=== PATIENT | female | born 2005 | race Caucasian/White ===

== ENCOUNTER 2025-07-11 23:19 | Emergency (ER) | payer MEDICAID, SELFPAY ==
--- NOTE | 2025-07-11 23:59 | XR_ITS ---
EXAMINATION: PA chest single view TECHNIQUE: Upright PA chest single view Date and time: July 12, 2025, 12:00 a.m., comparison September 22, 2022 INDICATIONS: Coughing 1 week with shortness of breath today FINDINGS: Normal heart size No lobar pneumonia or pulmonary edema. Osseous structures are intact IMPRESSION: No active disease
[2025-07-12 00:18] VITALS: BP 139/86; PULSE 89; RESP 18; TEMP 36.8; O2SAT 95
--- NOTE | 2025-07-12 00:29 | PD.EDSOB ---
ED SOB =RME/HPI General Chief Complaint: Shortness of Breath/Dyspnea Stated Complaint: SHORTNESS OF BREATH, COUGH Time Seen by Provider: 07/12/25 00:25 Arrival date/time: 07/11/25 23:19 19F with history of asthma presents to ED with days of cough and some SOB. Sibling has similar symptoms. Patient was given 5 day Rx of 20 mg prednisone Qday. Limitations: no limitations Related Data Home Medications ?Medication ?Instructions ?Recorded ?Confirmed montelukast 4 mg chewable tablet 4 mg PO HS 09/08/18 07/17/19 (Singulair) Previous Rx's ?Medication ?Instructions ?Recorded albuterol sulfate 90 mcg/actuation 2 puff inhalation Q4H PRN 09/29/17 aerosol inhaler shortness of breath or wheezing #18 grams benzonatate 100 mg capsule See Rx Instructions .Route 07/17/19 (Grover Cardona) .COMPLEX cough #30 caps cetirizine 5 mg-pseudoephedrine ER 1 tab PO Q12H #20 tabs 07/17/19 120 mg tablet,extended release,12hr (Zyrtec-D) ipratropium bromide 21 mcg (0.03 See Rx Instructions .Route 07/17/19 %) nasal spray .COMPLEX #30 mL ibuprofen 400 mg tablet 400 mg PO Q6H PRN fever or pain 07/31/19 #14 tabs acetaminophen 325 mg capsule 650 mg (2 x 325 mg) PO Q6H PRN 02/22/20 pain #30 caps ibuprofen 600 mg tablet 600 mg PO Q6H #30 tabs 02/22/20 prednisolone sodium phosphate 30 30 mg PO QDAY #4 tabs 07/17/20 mg disintegrating tablet ibuprofen 400 mg tablet 400 mg PO Q6H PRN pain #30 tabs 08/03/20 naproxen 500 mg tablet (Naprosyn) 500 mg PO BID PRN pain #30 tabs 12/25/20 sodium chloride 0.65 % nasal spray 2 spray intranasal QID PRN nasal 05/07/21 aerosol (Saline Nasal Mist) congestion #60 mL montelukast 10 mg tablet 10 mg PO QPM #30 tabs 09/22/22 (Singulair) naproxen 500 mg tablet 500 mg PO BID PRN pain #30 tabs 08/23/23 prednisone 20 mg tablet 20 mg PO BID 3 days #6 tabs 07/12/25 Allergies Allergy/AdvReac Type Severity Reaction Status Date / Time nut - unspecified Allergy Severe Swelling Verified 05/19/24 09:38 of Lip/Tongue/Throat walnut Allergy Severe Swelling Verified 05/19/24 09:38 of Lip/Tongue/Throat wheat Allergy Severe Swelling Verified 05/19/24 09:38 of Lip/Tongue/Throat Rat Epithelium Allergy Mild ITCHING Uncoded 05/19/24 09:38 Review of Systems Review of Systems Systems Reviewed: All systems reviewed, normal except as documented Cardiovascular Cardiovascular: Reports dyspnea Respiratory Respiratory: Reports as per HPI, Reports cough and Reports dyspnea Past Medical History Past Medical History CARDIAC: Negative Congestive Heart Failure RESPIRATORY: Positive Asthma; Negative Chronic Obstructive Pulmonary Disease (COPD) GASTROINTESTINAL: Positive Obesity GENITOURINARY: Negative Renal Disease ENDOCRINE: Negative Diabetes Mellitus Type 1 or Diabetes Mellitus Type 2 Social History SMOKING STATUS: Never smoker ED Exam General Limitations: Present no limitations General appearance: Present alert and in no apparent distress Head Head exam: Present atraumatic Neck Neck exam: Present normal inspection, full ROM and trachea midline Chest Chest inspection: Present normal inspection and symmetric chest wall rise Respiratory Respiratory exam: Present normal lung sounds bilaterally and prolonged expiratory phase (some) Neurological Exam Neurological exam: Present alert and oriented X3 Psychiatric Psychiatric exam: Present normal affect and normal mood Skin Skin exam: Present warm, dry, intact and normal color Course Quality Measures none Orders Category Date Time Status XR chest 1V portable Stat Exams 07/11/25 23:59 Taken Dexamethasone Inj [Decadron Inj] Med 07/12/25 00:25 Discontinued 10 mg PO X1 ONE predniSONE Med 07/12/25 00:25 Discontinued 40 mg PO X1 ONE Vital Signs Vital signs: Vital Signs Temperature 98.3 F 07/12/25 00:18 Pulse Rate 89 07/12/25 00:18 Respiratory Rate 18 07/12/25 00:18 Blood Pressure 139/86 H 07/12/25 00:18 Pulse Oximetry (%) 95 07/12/25 00:18 Oxygen Delivery Method Room Air 07/12/25 00:18 O2 at 95% on RA and WNLs Shortness of Breath / Dyspnea MDM Narrative MDM Narrative:: 19F with history of asthma presents to ED with days of cough and some SOB. Sibling has similar symptoms. Patient was given 5 day Rx of 20 mg prednisone Qday. Physical exam reveals clear lungs but prolonged expiration. Patient is afebrile, calm, and alert. Telerad CXR read unremarkable. Steroids improved symptoms. Will Augmentin prednisone Rx since 20 mg is too small for patient's weight. Patient data External records reviewed:: [facility] previous records Clinical information provided by:: patient Social determinants that could affect healthcare access:: none Patient has the following chronic illnesses:: asthma How is presenting disease/condition affected by chronic disease/condition?: exacerbated by Evaluation data The following diagnostics were reviewed and interpreted by me:: radiology exam(s) Lab and/or radiology exams considered but not ordered:: ordered Interpretation Summary: above Medications / Prescriptions Medications or Prescriptions considered but not ordered:: ordered Medication administrations:: Medication Administration History Discontinued Medications Dexamethasone Sodium Phosphate (Dexamethasone Sod Phos Inj 10 Mg/Ml Vial) 10 mg PO X1 ONE Stop: 07/12/25 00:26 Last Admin: 07/12/25 00:43 Dose: 10 mg Documented By: EVETTE Comments: po Prednisone (Prednisone 20 Mg Tablet) 40 mg PO X1 ONE Stop: 07/12/25 00:26 Last Admin: 07/12/25 00:44 Dose: 40 mg Documented By: EVETTE above Consultations Consultation(s) initiated? (list below): No Diagnosis Shortness of Breath Differential Diagnosis: acute exacerbation of chronic obstructive airways disease, congestive heart failure, community acquired pneumonia, asthma with exacerbation, pulmonary embolism and other (URI) Most likely diagnosis given after review of the tests above:: URI and asthma exacerbation Admission Indicated Admission indicated?: not indicated Admission Request Was there a request for admission?: No Disposition Plan Disposition Plan: Discharge Discharge Attestation Discharge Attestation: The patient and all family members were given an opportunity to ask questions and understood the discharge instructions. Discharge instructions specifically effects, indications for sooner follow up or return to the emergency department, and the expected course of current diagnosis. Patient condition: Stable Discharge Plan Plan Patient Disposition: HOME (Self Care) Discharge Disposition comment: Stable Prescriptions/Referrals Prescriptions/Med Rec: New prednisone 20 mg tablet 20 mg PO BID 3 Days Qty: 6 0RF No Action ipratropium bromide 0.03 % spray,non-aerosol See Rx Instructions .Route .COMPLEX Qty: 30 0RF Rx Instructions: 2 sprays to each nostril q6-8 hours prn congestion; wait 30 seconds between sprays benzonatate [Tessalon Perles] 100 mg capsule See Rx Instructions .Route .COMPLEX Qty: 30 0RF Rx Instructions: 1-2 cap(s) PO Q8 hours prn cough cetirizine-pseudoephedrine [Zyrtec-D] 5-120 mg tablet extended release 12 hr 1 tab PO Q12H Qty: 20 0RF albuterol sulfate 90 mcg/actuation HFA aerosol inhaler 2 puff INH Q4H PRN (Reason: shortness of breath or wheezing) Qty: 18 0RF Rx Instructions: administer with spacer montelukast [Singulair] 4 mg Tablet,Chewable 4 mg PO HS ibuprofen 400 mg tablet 400 mg PO Q6H PRN (Reason: fever or pain) Qty: 14 0RF ibuprofen 400 mg tablet 400 mg PO Q6H PRN (Reason: pain) Qty: 30 0RF naproxen [Naprosyn] 500 mg tablet 500 mg PO BID PRN (Reason: pain) Qty: 30 0RF sodium chloride [Saline Nasal Mist] 0.65 % aerosol,spray 2 spray intranasal QID PRN (Reason: nasal congestion) Qty: 60 0RF ibuprofen 600 mg tablet 600 mg PO Q6H Qty: 30 0RF acetaminophen 325 mg capsule 650 mg PO Q6H PRN (Reason: pain) Qty: 30 0RF prednisolone sodium phosphate 30 mg tablet,disintegrating 30 mg PO QDAY Qty: 4 0RF montelukast [Singulair] 10 mg tablet 10 mg PO QPM Qty: 30 0RF naproxen 500 mg tablet 500 mg PO BID PRN (Reason: pain) Qty: 30 0RF Referrals: Rosalva Charles PA-C [Primary Care Provider] - In 1 week Problem List Clinical Impression: Asthma with exacerbation, URI (upper respiratory infection) Patient/Caregiver Discharge Instructions Education Materials: ED URI, Viral W/ Wheezing (Adult) Additional Instructions: Please follow-up with PCP within 24-48 hours and return immediately if symptoms worsen. Add 40 mg of prednisone to your existing 20 mg for another 3 days. Print Language: Marshallese Stand Alone Forms: Patient Portal Info Letter CHARLEY/ALEXANDER Supervising Physician PA/ALEXANDER Supervising Physician: Dr. Erwin
[2025-07-12] MEDS: DEXAMETHASONE SOD PHOS INJ 10 MG/ML VIAL PO (00:43)
--- NOTE | 2025-07-12 00:54 | PRELIM_ITS ---
Radiograph of the chest (single PA Upright view). July 11, 2025 2358 hours Clinical history: Cough and SOB No prior study is available for comparison. Findings: The heart, mediastinum and pulmonary olga are unremarkable. The lungs are clear. There is no pleural effusion. The bony thorax is unremarkable. Impression: No acute cardiopulmonary process. Report Electronically Signed By: Raymundo Gurrola 07/12/2025 12:54:30 AM [EST]
== END 2025-07-12 01:51 | disposition home or self-care (01) ==
PROVIDERS: Emergency Provider Emergency Medicine; PCP Physician Assistant
DX: J06.9 Acute upper respiratory infection, unspecified (principal); J45.901 Unspecified asthma with (acute) exacerbation; Z79.52 Long term (current) use of systemic steroids
CPT/HCPCS: 71045; 99282; J1100; J7512